=== PATIENT | male | born 1995 | race Caucasian/White ===

== ENCOUNTER 2021-03-25 20:33 | Emergency (ER) | payer OTHER ==
[2021-03-25 22:31] LABS: BILIRUBIN NEGATIVE (NEGATIVE); BLOOD TRACE-INTACT Ery/uL (NEGATIVE); CLARITY CLEAR (CLEAR); COLOR YELLOW (YELLOW); GLUCOSE (U) NORMAL (NORMAL); LEUKOCYTES NEGATIVE Leu/uL (NEGATIVE); NITRITE NEGATIVE (NEGATIVE); PROTEIN NEGATIVE (NEGATIVE); SPECIFIC GRAVITY >=1.030 (1.001-1.030); UROBILINOGEN 0.2 mg/dL (0.2-1.0); pH 5.5 (5.0-9.0)
[2021-03-25 22:39] LABS: AMORPHOUS URATES CRYSTALS MODERATE; MUCOUS MODERATE; SQUAMOUS EPITHELIAL CELLS RARE; URINARY WBC RARE
[2021-03-25] MEDS ORDERED: NAPROXEN500 MG PO (22:44)
[2021-03-25] MEDS ORDERED: ROBAXIN750 MG PO (22:44)
[2021-03-25] MEDS ORDERED: MEDROL 4MG DOSEP4 MG PO (22:44)
== END 2021-03-26 00:49 | disposition left against medical advice (07) ==
LOC: FER 20:33
PROVIDERS: Emergency Medicine
DX: S39.012A Strain of muscle, fascia and tendon of lower back, initial encounter (principal); M54.41 Lumbago with sciatica, right side; F17.210 Nicotine dependence, cigarettes, uncomplicated; Z53.8 Procedure and treatment not carried out for other reasons; X50.1XXA Overexertion from prolonged static or awkward postures, initial encounter
CPT/HCPCS: 72131; 81001; J1885